=== PATIENT | female | born 1965 | race American Indian/Alaskan Native ===

== ENCOUNTER 2021-06-20 22:54 | Emergency (ER) | payer MEDICAID ==
[2021-06-21] MEDS ORDERED: IPRATROPIUM/ALBUTEROL SULFATE 3 ML AMPUL.NEB IH ONE (00:02)
--- NOTE | 2021-06-21 00:08 | Emergency Department Report ---
HPI - General Chief Complaint: Dyspnea/Respdistress Time Seen by Provider: 06/20/21 23:28 - HPI HPI: 55-year-old -Croatian female presents to the emergency department with a complaint of shortness of breath that worsens with exertion, mixed dry and productive cough. Overall this has been going on since the patient was discharged from the hospital in [place] after she got Covid. The patient became oxygen dependent after getting Covid and says she is on 5 to 6 L oxygen via nasal cannula. Patient also has a past medical history of hypertension. She is from [place] and currently up here visiting her daughter. The patient is in the emergency department this evening because after her daughter saw how she was breathing she began to get very worried and told her that she needed to be evaluated in the emergency department. The patient ran out of her albuterol inhaler and has been out of her anticoagulant for 2 days. No history of PE but was placed on the anticoagulant empirically. The patient admits that any exertion including getting off of the toilet or too much talking causes her to have increased shortness of breath. ED Past Medical Hx - Past Medical History Previous Medical History?: Yes Hx Asthma: Yes - Surgical History Past Surgical History?: No - Social History Smoking Status: Former Smoker Substance Use Type: None ED Review of Systems ROS: Stated complaint: JOCELIN Other details as noted in HPI Comment: All other systems reviewed and negative Constitutional: denies: chills, fever Eyes: denies: eye pain, vision change ENT: denies: ear pain, throat pain Respiratory: cough, shortness of breath, wheezing Cardiovascular: denies: chest pain, edema Gastrointestinal: denies: abdominal pain, vomiting Genitourinary: denies: dysuria, discharge Musculoskeletal: denies: back pain, arthralgia Skin: denies: rash, lesions Neurological: denies: headache, weakness Physical Exam - Physical Exam Vital Signs: Vital Signs 06/20/21 23:02 Temperature 98.2 F Pulse Rate 78 Respiratory 18 Rate Blood Pressure 154/91 O2 Sat by Pulse 88 Oximetry Physical Exam: GENERAL: The patient is ill-appearing. HENT: Normocephalic. Atraumatic. Patient has moist mucous membranes. EYES: Extraocular motions are intact. Pupils equal reactive to light bilaterally. NECK: Supple. Trachea is midline. CHEST/LUNGS: Mild wheezing throughout the chest. There is tachypnea and conversational dyspnea. There is respiratory distress noted. HEART/CARDIOVASCULAR: Regular. There is no mild tachycardia. There is no murmur. ABDOMEN: Abdomen is soft, nontender. Patient has normal bowel sounds. There is no abdominal distention. SKIN: Skin is warm and dry. NEURO: The patient is awake, alert, and oriented. The patient is cooperative. Normal speech. MUSCULOSKELETAL: There is no tenderness or deformity. There is no limitation range of motion. ED Course Vital Signs 06/20/21 23:02 Temperature 98.2 F Pulse Rate 78 Respiratory 18 Rate Blood Pressure 154/91 O2 Sat by Pulse 88 Oximetry ED Medical Decision Making - Lab Data Result diagrams: 06/21/21 00:09 06/21/21 00:09 Lab Results 06/21/21 06/21/21 06/21/21 Range/Units 00:09 00:09 00:09 WBC 10.1 (4.5-11.0) K/mm3 RBC 4.20 (3.65-5.03) M/mm3 Hgb 12.2 (10.1-14.3) gm/dl Hct 38.7 (30.3-42.9) % MCV 92 (79-97) fl MCH 29 (28-32) pg MCHC 32 (30-34) % RDW 15.5 H (13.2-15.2) % Plt Count 383 (140-440) K/mm3 Lymph % (Auto) 34.2 (13.4-35.0) % Boundary % (Auto) 6.0 (0.0-7.3) % Eos % (Auto) 9.1 H (0.0-4.3) % Baso % (Auto) 0.9 (0.0-1.8) % Lymph # (Auto) 3.5 (1.2-5.4) K/mm3 Boundary # (Auto) 0.6 (0.0-0.8) K/mm3 Eos # (Auto) 0.9 H (0.0-0.4) K/mm3 Baso # (Auto) 0.1 (0.0-0.1) K/mm3 Seg Neutrophils % 49.8 (40.0-70.0) % Seg Neutrophils # 5.0 (1.8-7.7) K/mm3 PT 14.0 (12.2-14.9) Sec. INR 0.97 (0.87-1.13) APTT 33.0 (24.2-36.6) Sec. D-Dimer 203.76 (0-234) ng/mlDDU Sodium 144 (137-145) mmol/L Potassium 3.8 (3.6-5.0) mmol/L Chloride 106.1 (98-107) mmol/L Carbon Dioxide 25 (22-30) mmol/L Anion Gap 17 mmol/L BUN 8 (7-17) mg/dL Creatinine 0.4 L (0.6-1.2) mg/dL Estimated GFR > 60 ml/min BUN/Creatinine Ratio 20 % Glucose 101 H (65-100) mg/dL Calcium 9.4 (8.4-10.2) mg/dL Total Bilirubin 0.20 (0.1-1.2) mg/dL AST 46 H (5-40) units/L ALT 39 (7-56) units/L Alkaline Phosphatase 99 (35-129) units/L Troponin T < 0.010 (0.00-0.029) ng/mL NT-Pro-B Natriuret Pep 237.8 (0-900) pg/mL Total Protein 7.5 (6.3-8.2) g/dL Albumin 4.0 (3.9-5) g/dL Albumin/Globulin Ratio 1.1 % - EKG Data -: EKG Interpreted by Ma EKG shows normal: sinus rhythm, axis, intervals, QRS complexes, ST-T waves Rate: normal - EKG Data When compared to previous EKG there are: previous EKG unavailable Interpretation: normal EKG - Radiology Data Radiology results: report reviewed XR chest 1V ap INDICATION / CLINICAL INFORMATION: SOB. COMPARISON: None available. FINDINGS: SUPPORT DEVICES: None. HEART /PULMONARY VASCULATURE: The cardiac silhouette is accentuated by low lung volumes. There is increased pulmonary vasculature congestion. LUNGS / PLEURA: Diffuse increased interstitial opacities are present. Mild airspace opacities within the lung bases, right greater the left. There is a 1.4 cm nodular opacity within the left upper lung. No sizable pleural effusion. No pneumothorax. ADDITIONAL FINDINGS: No significant additional findings. IMPRESSION: 1. Mild diffuse increased interstitial and bibasilar airspace opacities, favored to reflect edema. Superimposed pneumonia cannot be excluded. 2. 1.4 cm nodular opacity within the left upper lung. This could reflect focal infiltrate. However, pulmonary nodule cannot be excluded. Recommend further evaluation with CT. - Medical Decision Making This patient presents to the emergency department with shortness of breath that worsens with exertion and conversation. Overall this has been going on since the patient contracted COVID-19 and became oxygen dependent at home. Upon presentation the patient does appear to have some level of respiratory distress. Her oxygen saturation is okay with the supplemental oxygen, but the patient has tachypnea and significant conversational dyspnea, and this is at rest. Chest x- ray shows bilateral patchy opacities concerning for edema versus pneumonia. Blood cultures were sent and the patient was started on antibiotics. She was given a dose of Decadron and a DuoNeb breathing treatment. Upon reevaluation the patient is slightly improved and is able to converse a little better. Vital signs have been reassuring thus far including being afebrile. Labs have been mostly unremarkable including CBC, metabolic panel, negative D-dimer, negative first troponin, proBNP of only 250. The patient will be admitted to the hospital for further evaluation and treatment was accepted for admission by the hospitalist, Dr. Martinez. Critical Care Time: No Critical care attestation.: If time is entered above; I have spent that time in minutes in the direct care o f this critically ill patient, excluding procedure time. ED Disposition Clinical Impression: Respiratory distress, Post-COVID chronic shortness of breath Pneumonia Qualifiers: Pneumonia type: due to unspecified organism Laterality: bilateral Lung location: unspecified part of lung Qualified Code(s): J18.9 - Pneumonia, unspecified organism Disposition: ADMITTED INPATIENT Is pt being admited?: Yes Condition: Serious Time of Disposition: 02:22
[2021-06-21 00:22] LABS: Basophils # (Auto) 0.1 K/mm3 (0.0-0.1); Basophils % (Auto) 0.9 % (0.0-1.8); Eosinophils # (Auto) 0.9 K/mm3 (0.0-0.4); Eosinophils % (Auto) 9.1 % (0.0-4.3); Hematocrit 38.7 % (30.3-42.9); Hemoglobin 12.2 gm/dl (10.1-14.3); Lymphocytes # (Auto) 3.5 K/mm3 (1.2-5.4); Lymphocytes % (Auto) 34.2 % (13.4-35.0); Mean Corpuscular HGB Conc 32 % (30-34); Mean Corpuscular Volume 92 fl (79-97); Monocytes # (Auto) 0.6 K/mm3 (0.0-0.8); Platelet Count 383 K/mm3 (140-440); Red Cell Distribution Width 15.5 % (13.2-15.2)
[2021-06-21 00:38] LABS: INR 0.97 (0.87-1.13)
[2021-06-21] MEDS ORDERED: dexAMETHasone 4 MG/ML VIAL IV ONE (00:45)
--- NOTE | 2021-06-21 00:47 | XRay Report ---
XR chest 1V ap INDICATION / CLINICAL INFORMATION: SOB. COMPARISON: None available. FINDINGS: SUPPORT DEVICES: None. HEART /PULMONARY VASCULATURE: The cardiac silhouette is accentuated by low lung volumes. There is inc reased pulmonary vasculature congestion. LUNGS / PLEURA: Diffuse increased interstitial opacities are present. Mild airspace opacities within the lung bases, right greater the left. There is a 1.4 cm nodular opacity within the left upper lung. No sizable pleural effusion. No pneumothorax. ADDITIONAL FINDINGS: No significant additional findings. IMPRESSION: 1. Mild diffuse increased interstitial and bibasilar airspace opacities, favored to reflect edema. S uperimposed pneumonia cannot be excluded. 2. 1.4 cm nodular opacity within the left upper lung. This could reflect focal infiltrate. However, pulmonary nodule cannot be excluded. Recommend further evaluation with CT. Signer Name: Mainor Nolan MD Signed: 06/21/2021 12:43 AM Workstation Name: [id number]
[2021-06-21] MEDS ORDERED: AZITHROMYCIN/NS 500 MG/250 ML 500 MG/250 ML BAG IV ONE (00:48)
[2021-06-21] MEDS ORDERED: cefTRIAXone/NS 1 GM/50 ML 1 GM/50 ML BAG IV ONE (00:48)
[2021-06-21 01:27] LABS: Alanine Aminotransferase 39 units/L (7-56); Blood Urea Nitrogen 8 mg/dL (7-17); Calcium 9.4 mg/dL (8.4-10.2); Hemolysis Index 14
[2021-06-21 01:29] LABS: BUN/Creatinine Ratio 20
[2021-06-21] MEDS ORDERED: ONDANSETRON 4 MG/2 ML INJ IV PRN (03:03)
[2021-06-21] MEDS ORDERED: ACETAMINOPHEN 325 MG TAB PO PRN (03:03)
[2021-06-21] MEDS ORDERED: MORPHINE 2 MG/1 ML INJ IV PRN (03:03)
[2021-06-21] MEDS ORDERED: MORPHINE 4 MG/1 ML INJ IV PRN (03:03)
[2021-06-21] MEDS ORDERED: MAGNESIUM HYDROXIDE (MOM) ORAL LIQD UDC PO PRN (03:03)
--- NOTE | 2021-06-21 03:12 | History and Physical Report ---
History of Present Illness Date of examination: 06/21/21 Date of admission: 06/21/21 02:22 Chief complaint: Shortness of breath History of present illness: 55-year-old -Cypriot female with significant past medical history of asthma presents to the emergency room today complaining of shortness of breath which has been ongoing for the past few days. Patient has also had some cough which is sometimes productive for some sputum. Shortness of breath is worse on exertion and feels better upon resting. She denies any chest pain. Denies any fever or chills, no headache or dizziness and no diaphoresis. Shortness of breath is said to have gotten worse after being discharged from the hospital in [place] after having a COVID-19 infection. She became oxygen dependent on 5 to 6 L status post discharge. Patient lives in [place] currently visiting daughter in [place]. She has been out of albuterol inhaler and other medications over the past 2 days. Work-up in the emergency room today, chest x-ray reveals: 1. Mild diffuse increased interstitial and bibasilar airspace opacities, favored to reflect edema. Superimposed pneumonia cannot be excluded. 2. 1.4 cm nodular opacity within the left upper lung. This could reflect focal infiltrate. However, pulmonary nodule cannot be excluded. Recommend further evaluation with CT. Labs were however unremarkable. Patient be started on empiric IV antibiotics, steroid and also placed on oxygen. Past History Past Medical History: other ( asthma, history of COVID-19 pneumonia few months ago) Past Surgical History: No surgical history Social history: smoking (Patient is a former smoker) Family history: no significant family history Medications and Allergies Allergies Allergy/AdvReac Type Severity Reaction Status Date / Time No Known Allergies Allergy Verified 06/21/21 00:23 Active Meds: Active Medications Acetaminophen (Acetaminophen 325 Mg Tab) 650 mg PO Q4H PRN PRN Reason: Pain MILD(1-3)/Fever >100.5/VOGT Heparin Sodium (Porcine) (Heparin 5,000 Unit/1 Ml Vial) 5,000 unit SUB-Q Q8HR [facility] Sodium Chloride (Nacl 0.9% 1000 Ml) 1,000 mls @ 75 mls/hr IV DIRECT [facility] Ceftriaxone Sodium (Rocephin/Ns 2 Gm/100 Ml) 2 gm in 100 mls @ 200 mls/hr IV Q24H [facility]; Protocol Azithromycin (Zithromax/Ns) 500 mg in 250 mls @ 250 mls/hr IV Q24H [facility]; Protocol Magnesium Hydroxide (Magnesium Hydroxide (Mom) Oral Liqd Udc) 30 ml PO Q4H PRN PRN Reason: Constipation Morphine Sulfate (Morphine 2 Mg/1 Ml Inj) 2 mg IV Q4H PRN PRN Reason: Pain, Moderate (4-6) Morphine Sulfate (Morphine 4 Mg/1 Ml Inj) 4 mg IV Q4H PRN PRN Reason: Pain , Severe (7-10) Ondansetron HCl (Ondansetron 4 Mg/2 Ml Inj) 4 mg IV Q8H PRN PRN Reason: Nausea And Vomiting Sodium Chloride (Sodium Chloride 0.9% 10 Ml Flush Syringe) 10 ml IV BID SE[facility]US Sodium Chloride (Sodium Chloride 0.9% 10 Ml Flush Syringe) 10 ml IV PRN PRN PRN Reason: LINE FLUSH Review of Systems Constitutional: no fever, no chills Ears, nose, mouth and throat: no nasal congestion, no sore throat Cardiovascular: no chest pain, no palpitations Respiratory: cough, cough with sputum, shortness of breath, wheezing Gastrointestinal: no abdominal pain, no nausea, no vomiting, no diarrhea Genitourinary Female: no pelvic pain, no flank pain, no dysuria, no hematuria Musculoskeletal: no neck pain, no low back pain Integumentary: no rash, no pruritis Neurological: no headaches, no confusion Psychiatric: no anxiety, no depression Endocrine: no polyphagia, no polydipsia, no polyuria, no nocturia Exam - Constitutional Vitals: Temp Pulse Resp BP Pulse Ox 98.2 F 108 H 20 161/90 100 06/20/21 23:02 06/21/21 01:13 06/21/21 01:13 06/21/21 00:11 06/21/21 00:11 General appearance: Present: mild distress, well-nourished - EENT Eyes: Present: PERRL, EOM intact. Absent: scleral icterus ENT: hearing intact, clear oral mucosa, dentition normal - Neck Neck: Present: supple, normal ROM - Respiratory Respiratory effort: labored Respiratory: bilateral: wheezing - Cardiovascular Rhythm: regular Heart Sounds: Present: S1 & S2. Absent: gallop, systolic murmur, diastolic murmur, rub, click - Extremities Extremities: no ischemia, pulses intact, pulses symmetrical, No edema, normal temperature, normal color, Full ROM Peripheral Pulses: within normal limits - Abdominal General gastrointestinal: Present: soft, non-tender, non-distended, normal bowel sounds. Absent: mass - Integumentary Integumentary: Present: clear, warm, dry, normal turgor. Absent: rash - Musculoskeletal Musculoskeletal: strength equal bilaterally - Psychiatric Psychiatric: appropriate mood/affect, intact judgment & insight, memory intact, cooperative - Neurologic Neurologic: CNII-XII intact, no focal deficits, moves all extremities HEART Score - HEART Score Troponin: Troponin T < 0.010 ng/mL (0.00-0.029) 06/21/21 00:09 Results - Labs CBC & Chem 7: 06/21/21 00:09 06/21/21 00:09 Labs: Abnormal lab results 06/21/21 06/21/21 Range/Units 00:09 00:09 RDW 15.5 H (13.2-15.2) % Eos % (Auto) 9.1 H (0.0-4.3) % Eos # (Auto) 0.9 H (0.0-0.4) K/mm3 Creatinine 0.4 L (0.6-1.2) mg/dL Glucose 101 H (65-100) mg/dL AST 46 H (5-40) units/L Assessment and Plan - Patient Problems (1) Respiratory distress Current Visit: Yes Status: Acute Plan to address problem: Possibly secondary to underlying pneumonia versus edema. Patient currently on oxygen by nasal cannula. We will keep O2 saturation greater or equal to 92%. (2) Pneumonia Current Visit: Yes Status: Acute Plan to address problem: Patient placed on empiric IV antibiotics. We will await culture results. (3) Post-COVID chronic shortness of breath Current Visit: Yes Status: Acute Plan to address problem: Consult placed to infectious disease for evaluation and recommendations. We will continue on steroids. (4) DVT prophylaxis Current Visit: Yes Status: Acute Plan to address problem: Patient placed on subcutaneous heparin. (5) Full code status Current Visit: Yes Status: Acute Plan to address problem: Patient is full code.
[2021-06-21] MEDS ORDERED: SODIUM CHLORIDE 0.9% 1000 ML 1,000 ML IV SCH (03:15)
[2021-06-21] MEDS ORDERED: ALBUTEROL 2.5 MG/3 ML NEBU IH PRN (03:15)
[2021-06-21] MEDS ORDERED: HEPARIN 5,000 UNIT/1 ML VIAL SUB-Q SCH (06:00)
[2021-06-21] MEDS ORDERED: FUROSEMIDE 20 MG/2 ML INJ IV ONE (08:30)
--- NOTE | 2021-06-21 10:05 | Cat Scan Report ---
CT CHEST WITHOUT CONTRAST INDICATION / CLINICAL INFORMATION: pulm nodule evaluation. TECHNIQUE: Axial CT images were obtained through the chest without contrast. [facility] CT [facility] are performed using CT dose reduction for ALARA by means of automated exposure control. COMPARISON: Chest radiograph dated 06/21/2021 FINDINGS: HEART: No significant abnormality. CORONARY ARTERY CALCIFICATION: None. THORACIC AORTA: No significant abnormality. MEDIASTINUM / LUKE: No significant abnormality. PLEURA: No pleural effusion. No pneumothorax. LUNGS: There are diffuse groundglass opacities throughout the lungs. This could represent severe lucas a or severe pneumonitis including atypical infection. In addition there are patchy areas of focal air space consolidation bilaterally. No discrete pulmonary nodule is seen. ADDITIONAL FINDINGS: None. UPPER ABDOMEN: No significant abnormality. SKELETAL SYSTEM: No acute abnormality. IMPRESSION: 1. There are diffuse groundglass opacities throughout both lungs with areas of patchy airspace consol idation bilaterally somewhat greater on the right lower lobe. This could represent diffuse pulmonary edema with superimposed atelectasis or pneumonia. This entire process could represent atypical pneumo gaudencio. 2. No discrete pulmonary nodule is seen. Signer Name: Mert Cartagena MD Signed: 06/21/2021 10:00 AM Workstation Name: [id number]
--- NOTE | 2021-06-21 13:08 | Consultation ---
History of Present Illness Consult date: 06/21/21 Reason for consult: dyspnea History of present illness: 55-year-old -Ugandan female with significant past medical history of asthma presents to the emergency room today complaining of shortness of breath which has been ongoing for the past few days. Patient has also had some cough which is sometimes productive for some sputum. Shortness of breath is worse on exertion and feels better upon resting. She denies any chest pain. Denies any fever or chills, no headache or dizziness and no diaphoresis. Shortness of breath is said to have gotten worse after being discharged from the hospital in [place] after having a COVID-19 infection. She became oxygen dependent on 5 to 6 L status post discharge. Patient lives in [place] currently visiting daughter in [place]. She has been out of albuterol inhaler and other medications over the past 2 days. Work-up in the emergency room today, chest x-ray reveals: 1. Mild diffuse increased interstitial and bibasilar airspace opacities, favored to reflect edema. Superimposed pneumonia cannot be excluded. However, pulmonary nodule cannot be excluded. Recommend further evaluation with CT. Labs were however unremarkable. Patient be started on empiric IV antibiotics, steroid and also placed on oxygen. Past History Past History Past Medical History: hypertension, other (Has history of chronic asthma, was hospitalized with Covid pneumonia in March 2021 and has been on home oxygen since) Past Surgical History: No surgical history Social history: smoking (Patient is a former smoker) Family history: no significant family history Medications and Allergies Allergies Allergy/AdvReac Type Severity Reaction Status Date / Time No Known Allergies Allergy Verified 06/21/21 00:23 Active Meds: Active Medications Acetaminophen (Acetaminophen 325 Mg Tab) 650 mg PO Q4H PRN PRN Reason: Pain MILD(1-3)/Fever >100.5/VOGT Albuterol (Albuterol 2.5 Mg/3 Ml Nebu) 2.5 mg IH Q4HRT PRN PRN Reason: Shortness Of Breath Heparin Sodium (Porcine) (Heparin 5,000 Unit/1 Ml Vial) 5,000 unit SUB-Q Q8HR SEAMUS Last Admin: 06/21/21 06:12 Dose: 5,000 unit Documented by: Sodium Chloride (Nacl 0.9% 1000 Ml) 1,000 mls @ 75 mls/hr IV DIRECT [facility]AMUS Magnesium Hydroxide (Magnesium Hydroxide (Mom) Oral Liqd Udc) 30 ml PO Q4H PRN PRN Reason: Constipation Morphine Sulfate (Morphine 2 Mg/1 Ml Inj) 2 mg IV Q4H PRN PRN Reason: Pain, Moderate (4-6) Morphine Sulfate (Morphine 4 Mg/1 Ml Inj) 4 mg IV Q4H PRN PRN Reason: Pain , Severe (7-10) Ondansetron HCl (Ondansetron 4 Mg/2 Ml Inj) 4 mg IV Q8H PRN PRN Reason: Nausea And Vomiting Sodium Chloride (Sodium Chloride 0.9% 10 Ml Flush Syringe) 10 ml IV BID [facility] Last Admin: 06/21/21 10:41 Dose: 10 ml Documented by: Sodium Chloride (Sodium Chloride 0.9% 10 Ml Flush Syringe) 10 ml IV PRN PRN PRN Reason: LINE FLUSH Review of Systems Constitutional: weakness, chronic pain Ears, nose, mouth and throat: deferred Breasts: deferred Cardiovascular: shortness of breath, dyspnea on exertion, high blood pressure Respiratory: cough, shortness of breath, dyspnea on exertion, home oxygen Physical Examination Vital signs: Vital Signs Temp Pulse Resp BP Pulse Ox 98.2 F 78 18 154/91 88 06/20/21 23:02 06/20/21 23:02 06/20/21 23:02 06/20/21 23:02 06/20/21 23:02 General appearance: no acute distress, alert Eyes: non-icteric ENT: oropharynx moist Neck: supple, no JVD Ascultation: Bilateral: rhonchi Cardiovascular: regular rate and rhythm Gastrointestinal: normoactive bowel sounds, soft, non-tender Integumentary: normal Extremities: no cyanosis, no edema, pink and warm Musculoskeletal: no deformities Gait: other (Not examined) normal mental status, non-focal exam mood appropriate Results - Laboratory Findings CBC and BMP: 06/21/21 00:09 06/21/21 00:09 PT/INR, D-dimer PT 14.0 Sec. (12.2-14.9) 06/21/21 00:09 INR 0.97 (0.87-1.13) 06/21/21 00:09 D-Dimer 203.76 ng/mlDDU (0-234) 06/21/21 00:09 Abnormal lab findings: Abnormal Labs 06/21/21 06/21/21 00:09 00:09 RDW 15.5 H Eos % (Auto) 9.1 H Eos # (Auto) 0.9 H Creatinine 0.4 L Glucose 101 H AST 46 H - Diagnostic Findings Chest x-ray: image reviewed (Diffuse interstitial lung disease) CT scan - chest: image reviewed (Diffuse interstitial and alveolar infiltrate and groundglass opacities) Assessment and Plan Impression: Bilateral diffuse interstitial lung disease with some alveolar infiltrate most likely residual from recent COVID-19 pneumonia. However a superimposed pneumonia/infection or fluid overload cannot be entirely ruled out but appears to be unlikely given the clinical information. Chronic hypoxic respiratory failure on home oxygen therapy at 5 to 6 L. Currently oxygenating well on 6 L nasal cannula probably her baseline Hypertension. Recommendation: Agree with IV steroids and antibiotics at this point. Continue with supplemental oxygen. In my opinion it is most likely a chronic situation from recent COVID-19 pneumonia.
--- NOTE | 2021-06-21 14:20 | Event Note ---
Date: 06/21/21 Patient seen and examined in the ED. On [address] chest ordered and reveals bilateral infiltrates. Patient received 1 dose of Lasix and antibiotics in the ED. Procalcitonin 0.06. Antibiotics discontinued and prednisone started. Likely sequela of COVID-19 pneumonia.
--- NOTE | 2021-06-21 14:44 | Discharge Summary ---
Providers - Providers Date of Admission: 06/21/21 02:22 Date of discharge: 06/21/21 Attending physician: MARY SIMMS MD 06/21/21 03:03 Consult to Physician [CONS] Routine Comment: Consulting Provider: NEELIMA OWEN Physician Instructions: Reason For Exam: Respiratory Distress,Pneumonia, H/O Covid-19 Primary care physician: WATCH CASE POLISHER Hospitalization Reason for admission: respiratory failure Condition: Serious Hospital course: 55-year-old female with history of asthma who presented with shortness of breath. She was recently diagnosed with COVID-19 at outside hospital. She was discharged home with supplemental oxygen. She reports increased oxygen requirements in the last 2 days and loss of her inhalers. Imaging was suggestive of pneumonia. She was started on empiric antibiotics and steroids. Antibiotics were discontinued. Patient decided to leave AMA prior to further treatment. Disposition: 07 LEFT AGAINST MEDICAL ADVICE Final Discharge Diagnosis (Prints w/discharge instructions): Acute on chronic respiratory failure. COVID-19 pneumonia Time spent for discharge: 15 minutes Core Measure Documentation - Palliative Care Palliative Care/ Comfort Measures: Not Applicable - Core Measures Any of the following diagnoses?: none Exam - Physical Exam Narrative exam: unable to perform - Constitutional Vitals: Temp Pulse Resp BP Pulse Ox 98.2 F 98 H 35 H 134/90 100 06/20/21 23:02 06/21/21 06:00 06/21/21 06:00 06/21/21 06:00 06/21/21 06:00 Plan Follow up with: CURLY JURADO MD [Primary Care Provider] - 3-5 Days Forms: AMA Form
[2021-06-21] MEDS ORDERED: predniSONE 20 MG TAB PO SCH (15:00)
[2021-06-21 15:44] VITALS: BP 135/78
[2021-06-21] MEDS ORDERED: cefTRIAXone/NS 2 GM/100 ML 2 GM/100 ML BAG IV SCH (22:00)
[2021-06-21] MEDS ORDERED: AZITHROMYCIN/NS 500 MG/250 ML 500 MG/250 ML BAG IV SCH (22:00)
--- NOTE | 2021-06-23 14:22 | Electrocardiograph Report ---
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
== END 2021-06-21 15:34 | disposition left against medical advice (07) ==
LOC: ED 22:54 → 3A 06-21 02:22 → UNDOADMOB 06-21 02:22 → 3A 06-21 12:26 → ED 06-21 15:34 → 3A 06-21 19:13
DX: R06.03 Acute respiratory distress (principal); R06.02 Shortness of breath; J18.9 Pneumonia, unspecified organism; I10 Essential (primary) hypertension; J45.909 Unspecified asthma, uncomplicated; Z87.891 Personal history of nicotine dependence
CPT/HCPCS: 36415; 71045; 71250; 80053; 83880; 84145; 84484; 85025; 85379; 85610; 85730; 87040; 93005; 94640; 96365; 96367; 96372; 96375; 99285; J0456; J0696; J1100; J1644; J1940; 94644; 99284

== ENCOUNTER 2021-10-05 12:48 | Emergency (ER) | payer MEDICAID, OTHER ==
[2021-10-05] MEDS ORDERED: BENZONATATE 100 MG CAP PO ONE (20:34)
[2021-10-05] MEDS ORDERED: ACETAMINOPHEN W/CODEINE 300-30 MG TAB PO ONE (20:34)
[2021-10-05] MEDS ORDERED: DEXAMETHASONE 4 MG TAB PO ONE (20:34)
--- NOTE | 2021-10-05 20:55 | XRay Report ---
CHEST PA AND LATERAL VIEWS INDICATION: cough, fever at home. COMPARISON: 06/30/2021 FINDINGS: Support devices: None. Heart: Within normal limits. Lungs/Pleura: There are diffuse bilateral pulmonary opacities that are predominantly interstitial. Th ere is mild peribronchial cuffing. No pleural abnormality. IMPRESSION: 1. Bilateral pulmonary opacities similar to the prior exam from June. Signer Name: Tomasz Lundberg MD Signed: 10/05/2021 8:51 PM Workstation Name: [id number]
[2021-10-05] MEDS ORDERED: levoFLOXacin 750 MG TAB PO ONE (21:26)
--- NOTE | 2021-10-05 21:37 | Cat Scan Report ---
CT CHEST WITHOUT CONTRAST INDICATION / CLINICAL INFORMATION: abnormal xray, persistent cough. TECHNIQUE: Axial CT images were obtained through the chest without contrast. All CT scans at this [facility] ation are performed using CT dose reduction for ALARA by means of automated exposure control. COMPARISON: CT dated 06/21/21 FINDINGS: HEART: No significant abnormality. CORONARY ARTERY CALCIFICATION: Present -- Mild. THORACIC AORTA: No significant abnormality. MEDIASTINUM / LUKE: No significant abnormality. PLEURA: No pleural effusion. No pneumothorax. LUNGS: Diffuse groundglass opacities throughout both lungs have improved slightly. Bilateral subpleur al scarring has improved slightly. No acute airspace consolidation. ADDITIONAL FINDINGS: None. UPPER ABDOMEN: No significant abnormality. SKELETAL SYSTEM: No significant abnormality. IMPRESSION: 1. Slight improvement in bilateral diffuse groundglass opacities which could be postinflammatory such as after atypical pneumonia. 2. No acute airspace disease. Signer Name: Prateek Trammell MD Signed: 10/05/2021 9:33 PM Workstation Name: [id number]
--- NOTE | 2021-10-05 21:47 | Emergency Department Report ---
- General Chief Complaint: Abdominal Pain Stated Complaint: COLD SYMPTOMS Time Seen by Provider: 10/05/21 20:33 Source: patient Mode of arrival: Ambulatory Limitations: No Limitations - History of Present Illness Initial Comments: 55-year-old black female with past medical history of hypertension presents to the emergency department for evaluation of 1 to 2-week history of worsening productive cough with congestion and intermittent fever. She denies shortness of breath at this time but states that she feels short of breath when she talks a lot. He states that he feels like mucus is stuck in her throat and she cannot get it out. She states that she is coughing so much that her stomach hurts when she coughs now. She denies nausea, vomiting, and fatigue. She states that she feels a lot like she fell back in June when she had pneumonia. MD Complaint: fever, cough, sore throat -: Gradual, week(s) (1-2) Severity: moderate Consistency: intermittent Associated Symptoms: fever, nasal congestion, sore throat, cough, abdominal pain. denies: chills, myalgias, diaphoresis, headache, rhinorrhea, stiff neck, chest pain, shortness of breath, nausea, vomiting, diarrhea, dysuria, rash, confusion, hoarseness Treatments Prior to Arrival: none - Related Data Previous Rx's Medication Instructions Recorded Last Taken Type Benzonatate [Tessalon Perles] 100 mg PO Q8HR PRN #21 cap 10/05/21 Unknown Rx guaiFENesin/CODEINE [Robitussin AC] 5 ml PO TID PRN #120 ml 10/05/21 Unknown Rx levoFLOXacin [Levaquin] 750 mg PO QDAY 5 Days #5 tablet 10/05/21 Unknown Rx methylPREDNISolone [Medrol 4MG 4 mg PO DAILY #1 pack 10/05/21 Unknown Rx DOSEPAK (21 tabs)] Allergies Allergy/AdvReac Type Severity Reaction Status Date / Time No Known Allergies Allergy Verified 06/21/21 00:23 ED Review of Systems ROS: Stated complaint: COLD SYMPTOMS Other details as noted in HPI Comment: All other systems reviewed and negative Constitutional: fever. denies: chills ENT: throat pain, congestion Respiratory: cough, shortness of breath. denies: SOB with exertion, SOB at rest Cardiovascular: denies: chest pain, palpitations, dyspnea on exertion, orthopnea, edema, syncope, paroxysmal nocturnal dyspnea Gastrointestinal: abdominal pain. denies: nausea, vomiting, diarrhea, hematemesis, melena, hematochezia Genitourinary: denies: urgency, dysuria, frequency, hematuria, discharge Musculoskeletal: denies: back pain Skin: denies: rash, lesions Neurological: denies: headache, weakness, numbness, paresthesias, confusion, abnormal gait, vertigo ED Past Medical Hx - Past Medical History Hx Asthma: Yes - Social History Smoking Status: Former Smoker Substance Use Type: None - Medications Home Medications: Home Medications Medication Instructions Recorded Confirmed Last Taken Type Benzonatate [Tessalon Perles] 100 mg PO Q8HR PRN #21 cap 10/05/21 Unknown Rx guaiFENesin/CODEINE [Robitussin AC] 5 ml PO TID PRN #120 ml 10/05/21 Unknown Rx levoFLOXacin [Levaquin] 750 mg PO QDAY 5 Days #5 tablet 10/05/21 Unknown Rx methylPREDNISolone [Medrol 4MG 4 mg PO DAILY #1 pack 10/05/21 Unknown Rx DOSEPAK (21 tabs)] ED Physical Exam - General Limitations: No Limitations General appearance: alert, in no apparent distress - Head Head exam: Present: atraumatic, normocephalic - Eye Eye exam: Present: normal appearance. Absent: conjunctival injection - Neck Neck exam: Present: normal inspection, full ROM. Absent: tenderness, lymphadenopathy - Respiratory Respiratory exam: Present: normal lung sounds bilaterally. Absent: respiratory distress, wheezes, rales, rhonchi, stridor, chest wall tenderness, accessory muscle use - Cardiovascular Cardiovascular Exam: Present: regular rate, normal heart sounds - GI/Abdominal GI/Abdominal exam: Present: soft, normal bowel sounds. Absent: distended, tenderness, guarding, rebound, rigid - Extremities Exam Extremities exam: Present: normal inspection, normal capillary refill. Absent: tenderness, pedal edema, joint swelling, calf tenderness - Back Exam Back exam: Present: normal inspection. Absent: CVA tenderness (R), CVA tenderness (L) - Neurological Exam Neurological exam: Present: alert, oriented X3, normal gait - Psychiatric Psychiatric exam: Present: normal affect, normal mood - Skin Skin exam: Present: warm, dry, intact, normal color ED Course Vital Signs 10/05/21 14:20 Temperature 98.4 F Pulse Rate 90 Respiratory 18 Rate Blood Pressure 145/81 [Right] O2 Sat by Pulse 98 Oximetry - Reevaluation(s) Reevaluation #1: 10/05/21 22:00 Patient states that she feels better. ED Medical Decision Making - Radiology Data Radiology results: report reviewed, image reviewed Chest x-ray: FINDINGS: Support devices: None. Heart: Within normal limits. Lungs/Pleura: There are diffuse bilateral pulmonary opacities that are predominantly interstitial. There is mild peribronchial cuffing. No pleural abnormality. IMPRESSION: 1. Bilateral pulmonary opacities similar to the prior exam from June. CT chest without contrast: FINDINGS: HEART: No significant abnormality. CORONARY ARTERY CALCIFICATION: Present -- Mild. THORACIC AORTA: No significant abnormality. MEDIASTINUM / LUKE: No significant abnormality. PLEURA: No pleural effusion. No pneumothorax. LUNGS: Diffuse groundglass opacities throughout both lungs have improved slightly. Bilateral subpleural scarring has improved slightly. No acute airspace consolidation. ADDITIONAL FINDINGS: None. UPPER ABDOMEN: No significant abnormality. SKELETAL SYSTEM: No significant abnormality. IMPRESSION: 1. Slight improvement in bilateral diffuse groundglass opacities which could be postinflammatory such as after atypical pneumonia. 2. No acute airspace disease. - Medical Decision Making 55-year-old black female with past medical history of hypertension presents to the emergency department for evaluation of 1 to 2-week history of worsening productive cough with congestion and intermittent fever. She denies shortness of breath. He states that he feels like mucus is stuck in her throat and she cannot get it out. She states that she is coughing so much that her stomach hurts when she coughs now. She denies nausea, vomiting, and fatigue. She states that she feels a lot like she fell back in June when she had pneumonia. Chest x-ray and CT scan suspicious for atypical pneumonia. Patient without any signs of sepsis. No acute distress noted. Patient will be treated with Levaquin 750 p.o. first dose now and sent home with Levaquin 750 daily for 5 days, Medrol Dosepak, and Tessalon pearls and Robitussin-AC to use as needed for cough. She is advised to take medications as prescribed, drink plenty of noncaffeinated fluids, get rest, and follow-up with her primary care provider or sports internship if no improvement or worsening symptoms. She verbalized understanding of and agreement with plan of care. Critical care attestation.: If time is entered above; I have spent that time in minutes in the direct care of this critically ill patient, excluding procedure time. ED Disposition Clinical Impression: Atypical pneumonia Disposition: 01 HOME / SELF CARE / HOMELESS Is pt being admited?: No Does the pt Need Aspirin: No Condition: Stable Instructions: Abdominal Pain (ED), Community-Acquired Pneumonia, Adult, [id number] Additional Instructions: Take medications as prescribed. Follow-up with primary care provider if no improvement or worsening symptoms. Prescriptions: levoFLOXacin [Levaquin] 750 mg PO QDAY 5 Days #5 tablet methylPREDNISolone [Medrol 4MG DOSEPAK (21 tabs)] 4 mg PO DAILY #1 pack guaiFENesin/CODEINE [Robitussin AC] 5 ml PO TID PRN #120 ml PRN Reason: Cough Benzonatate [Tessalon Perles] 100 mg PO Q8HR PRN #21 cap PRN Reason: Cough Referrals: ZACHARY CANO MD [Referring] - 3-5 Days DIONNA COOPER MD [Staff Physician] - 3-5 Days Time of Disposition: 21:47
[2021-10-05 22:13] VITALS: BP 132/72
== END 2021-10-05 22:13 | disposition home or self-care (01) ==
LOC: ED 12:48
DX: J18.9 Pneumonia, unspecified organism (principal); Z87.891 Personal history of nicotine dependence
CPT/HCPCS: 71046; 71250; 99284; J8540